=== PATIENT | male | born 1930 | race Caucasian/White ===

== ENCOUNTER 2018-01-05 09:24 | Inpatient (IN) ==
[2018-01-05] MEDS ORDERED: Ondansetron 4 MG/2 ML VIAL IVP ONE (09:26)
[2018-01-05] MEDS ORDERED: 0.9 % Sodium Chloride 1,000 ML IVC ONE (09:26)
--- NOTE | 2018-01-05 09:39 | Emergency Department Note ---
Disposition Clinical Impression: Acute exacerbation of chronic obstructive airways disease, A-fib, Parkinson disease Disposition: Admitted As Inpatient Condition: Fair Time of Disposition: 11:43 General Adult HPI - General Stated complaint: BIBI Time Seen by Provider: 01/05/18 09:26 Nursing Notes Reviewed: Yes Vital Signs Reviewed: Yes - History of Present Illness HPI Narrative: Patient is an 87-year-old male with history of COPD, Parkinson's and A. fib who presents to the emergency department via EMS with complaints of nausea, vomiting and difficulty breathing which began last night. Per EMS the bedside commode was full of vomit and he was found at home in bed. reports over the past couple of days he has had decreased appetite and weakness with nausea and vomiting about over the last 24 hours. Per , he reportedly is supposed to take his inhaler 4 times per day but often forgets no history of recent falls though uses a walker at home. Not been placed on anticoagulants due to history of GI bleeds. Denies any fever, chills, chest pain, abdominal pain, diarrhea, constipation. - Related Data Previous Rx's Medication Instructions Recorded Ciprofloxacin HCl [Cipro] 500 mg PO DAILY 10 Days tablet 09/17/16 Lidocaine Patch [Lidoderm 5% patch] 1 each TP DAILY #10 adh..patch 04/03/17 Allergies Allergy/AdvReac Type Severity Reaction Status Date / Time No Known Allergies Allergy Verified 04/03/17 11:54 Constitutional: Denies: fever, chills, weakness ENT ED: Denies: throat pain Cardiovascular: Denies: chest pain, palpitations, edema Respiratory: Reports: dyspnea. Denies: cough, wheezes Gastrointestinal: Reports: nausea, vomiting. Denies: abdominal pain, diarrhea, constipation Genitourinary: Reports: frequency. Denies: urgency, dysuria Integumentary: Denies: rash, abrasion Neurological: Denies: headache, weakness Past Medical History - Past Medical History Source: patient, old records reviewed, obtained from family Medical history: Reports: arthritis, atrial fibrillation, cancer, COPD, GERD, GI bleed, other (Parkinson Disease) Psychiatric history: Reports: no psych history - Social History Smoking Status: Never smoker Smokeless Tobacco Status: No Alcohol use: Reports: none Drug use: Reports: none Physical Exam Patient is tachypnic, able to voice some concerns but has trouble phonating due to Parkinsons. - General General appearance: alert - Head Head exam: atraumatic, normocephalic - Eye Eye exam: Present: PERRL, EOMI - ENT ENT exam: mucous membranes dry - Chest Chest inspection: Present: normal inspection, symmetric chest wall rise. Absent : tenderness - Respiratory Respiratory exam: Present: normal lung sounds bilaterally, respiratory distress , other (on 4L NC) - Cardiovascular Cardiovascular exam: Present: regular rate, irregular rhythm - Abdominal Exam Abdominal exam: Present: soft, Non-Tender. Absent: distention, guarding - Extremities Exam Extremities exam: Present: pedal edema (1+ to ankles bilaterally) - Back Exam Back exam: Present: normal inspection - Neurological Exam Neurological exam: Present: alert, oriented X3 - Psychiatric Psychiatric exam: Present: normal affect, normal mood - Skin Skin exam: Present: warm, dry Course Course Narrative: Initially presented via EMS with dyspnea for the patient he has no significant medical nautical history other than irregular heartbeat in the past. He denies any history of COPD or other respiratory problems though per records he does have a history of COPD, A. fib, cancer, GERD. We will await the arrival of his family for further information on the patient's medical history. - Reevaluation(s) Reevaluation #1: Discussed with the patient's he has had significant difficulty swallowing and often chokes on his food. Denies any history of CHF or previous SC. family. Patient apparently has history of Parkinson's, COPD, A. fib and difficulty swallowing. His who lives with him states that he intermittently uses his inhaler but is stubborn and often forgets. Denies any recent falls though uses a walker at home. Denies any history of CHF or previous SC. Time: 09:50 Reevaluation #2: Pulse Ox continues to range from 80-86% on 2L, will give 2 duonebs and reassess. Time: 10:31 Reevaluation #3: Case discussed with hospitalist, Dr. Maria who accepted admission. Recommended prednisone 40mg, which was ordered. Time: 11:43 Vital Signs Temperature 98.3 F 01/05/18 09:29 Pulse Rate 89 01/05/18 09:29 Respiratory Rate 18 01/05/18 09:29 Blood Pressure 153/99 01/05/18 09:29 O2 Sat by Pulse Oximetry 96 01/05/18 09:29 Temperature 98.3 F 01/05/18 09:29 Pulse Rate 81 01/05/18 11:26 Respiratory Rate 18 01/05/18 11:26 Blood Pressure 134/72 01/05/18 11:26 O2 Sat by Pulse Oximetry 96 01/05/18 11:26 Oxygen Delivery Oxygen Delivery Nasal Cannula Medical Decision Making - [facility] Narrative Medical decision making narrative: Vital Signs Temperature 98.3 F 01/05/18 09:29 Pulse Rate 89 01/05/18 09:29 Respiratory Rate 18 01/05/18 09:29 Blood Pressure 153/99 01/05/18 09:29 O2 Sat by Pulse Oximetry 96 01/05/18 09:29 Temperature 98.3 F 01/05/18 09:29 Pulse Rate 89 01/05/18 09:29 Respiratory Rate 18 01/05/18 09:29 Blood Pressure 153/99 01/05/18 09:29 O2 Sat by Pulse Oximetry 96 01/05/18 09:29 Oxygen Delivery Oxygen Delivery Nasal Cannula Patient with COPD and Parkinsons, pulse ox 90 on 4 L per EMS with multiple rounds of emesis. History of Parkinsons and this is likely COPD exacerbation vs CHF vs aspiration event. Chest x-ray was unremarkable. CBC, CMP, troponin, and UA were unremarkable. BNP 92. Patient continues on 3 L of oxygen with fluctuating pulse ox from 80-99%. He has gotten two duonebs with slight improvement in aeration but continued slight dyspnea. Patient told multiple times by previous providers that he may need home oxygen but was not ready for that step. Options discussed with family and they agree with the plan for admission for further workup. Dr. Maria accepted the patient under hospitalist service. - Medical Records Medical records reviewed: Yes I reviewed the patient's medical records. - Lab Data Lab results reviewed: Yes I reviewed the patient's lab results. Result diagrams: 01/05/18 10:09 01/05/18 10:09 Lab Results 01/05/18 01/05/18 01/05/18 Range/Units 09:43 10:09 10:09 WBC 5.3 (4.3-11.1) K/mcL RBC 4.05 L (4.19-5.50) M/mcL Hgb 12.7 L (12.9-16.9) g/dL Hct 38.1 (37.5-50.1) % MCV 94.1 (83.0-100.0) fL MCH 31.4 (28.0-33.3) pg MCHC 33.3 (31.6-35.5) g/dL RDW 13.7 (11.5-14.5) % Plt Count 176 (140-400) K/mcL MPV 10.1 (9.4-12.4) fL Immature Gran % 0.2 (0-4) % Seg Neutrophils % 66.2 % Lymphocytes % 24.2 % Monocytes % 5.8 % Eosinophils % 3.0 % Basophils % 0.6 % Neutrophils # 3.5 (1.6-8.9) K/mcL Lymphocytes # 1.3 (0.6-4.6) K/mcL Monocytes # 0.3 (0.0-1.3) K/mcL Eosinophils # 0.2 (0.0-0.6) K/mcL Basophils # 0.0 (0.0-0.2) K/mcL Sodium 140 (136-145) mEq/L Potassium 4.2 (3.5-5.1) mEq/L Chloride 107 (98-107) mEq/L Carbon Dioxide 29 (23-29) mEq/L BUN 12 (8-23) mg/dL Creatinine 0.76 (0.70-1.30) mg/dL Est GFR ( Amer) > 60 (> 60) Est GFR (Non-Af Amer) > 60 (> 60) BUN/Creatinine Ratio 16 (6-26) Glucose 108 H (70-105) mg/dL Calculated Osmolality 290 (280-300) Calcium 8.6 (8.6-10.3) mg/dL Troponin I < 0.03 (< 0.04) ng/mL B-Natriuretic Peptide (Less than 100) pg/mL Urine Color Yellow (Yellow) Urine Clarity Cloudy A (Clear) Urine pH 8.0 (5.0-8.0) pH Units Ur Specific [place] 1.011 (1.010-1.025) Urine Protein Negative (Neg-Trace) mg/dL Urine Glucose (UA) Normal (Normal) mg/dL Urine Ketones Negative (Negative) mg/dL Urine Blood Negative (Negative) Urine Nitrite Negative (Negative) Urine Bilirubin Negative (Negative) Urine Urobilinogen Normal (Normal) mg/dL Ur Leukocyte Esterase Negative (Negative) Urine Microscopic RBC 3-5 H (0-3) per hpf Urine Microscopic WBC 0-3 (0-3) per hpf Ur Squamous Epith Cells Many H (None-Few) per lpf Ur Renal Epithelial Cell Many H (None-Few) per hpf Amorphous Sediment Many H (Few) Hyaline Casts None Seen (None-Few) per lpf Ur Culture Indicated? NO (NO) 01/05/18 Range/Units 10:09 WBC (4.3-11.1) K/mcL RBC (4.19-5.50) M/mcL Hgb (12.9-16.9) g/dL Hct (37.5-50.1) % MCV (83.0-100.0) fL MCH (28.0-33.3) pg MCHC (31.6-35.5) g/dL RDW (11.5-14.5) % Plt Count (140-400) K/mcL MPV (9.4-12.4) fL Immature Gran % (0-4) % Seg Neutrophils % % Lymphocytes % % Monocytes % % Eosinophils % % Basophils % % Neutrophils # (1.6-8.9) K/mcL Lymphocytes # (0.6-4.6) K/mcL Monocytes # (0.0-1.3) K/mcL Eosinophils # (0.0-0.6) K/mcL Basophils # (0.0-0.2) K/mcL Sodium (136-145) mEq/L Potassium (3.5-5.1) mEq/L Chloride (98-107) mEq/L Carbon Dioxide (23-29) mEq/L BUN (8-23) mg/dL Creatinine (0.70-1.30) mg/dL Est GFR ( Amer) (> 60) Est GFR (Non-Af Amer) (> 60) BUN/Creatinine Ratio (6-26) Glucose (70-105) mg/dL Calculated Osmolality (280-300) Calcium (8.6-10.3) mg/dL Troponin I (< 0.04) ng/mL B-Natriuretic Peptide 92 (Less than 100) pg/mL Urine Color (Yellow) Urine Clarity (Clear) Urine pH (5.0-8.0) pH Units Ur Specific [place] (1.010-1.025) Urine Protein (Neg-Trace) mg/dL Urine Glucose (UA) (Normal) mg/dL Urine Ketones (Negative) mg/dL Urine Blood (Negative) Urine Nitrite (Negative) Urine Bilirubin (Negative) Urine Urobilinogen (Normal) mg/dL Ur Leukocyte Esterase (Negative) Urine Microscopic RBC (0-3) per hpf Urine Microscopic WBC (0-3) per hpf Ur Squamous Epith Cells (None-Few) per lpf Ur Renal Epithelial Cell (None-Few) per hpf Amorphous Sediment (Few) Hyaline Casts (None-Few) per lpf Ur Culture Indicated? (NO) - Radiology Data Radiology results reviewed: Yes I reviewed the patient's radiology results. Chest X-Ray 01/05/18 09:26 IMPRESSION: No acute cardiopulmonary disease. D/ / 01/05/2018 09:43:36 Hector Mansfield MD / olivia Interpreting Provider: Hector Mansfield MD - EKG Data EKG #1 EKG attestation: Yes I reviewed and interpreted this EKG. EKG results narrative: A. fib rate of 89, normal axis, ERS 82, QT 339, QTC 385. No evidence of acute ST elevation. Compared with 04/03/2017significant changes.
--- NOTE | 2018-01-05 09:40 | Emergency Department Note ---
Disposition Clinical Impression: Acute exacerbation of chronic obstructive airways disease, A-fib, Parkinson disease Disposition: Admitted As Inpatient Condition: Fair General Adult HPI - General Stated complaint: BIBI Time Seen by Provider: 01/05/18 09:26 Nursing Notes Reviewed: Yes Vital Signs Reviewed: Yes - Related Data Previous Rx's Medication Instructions Recorded Ciprofloxacin HCl [Cipro] 500 mg PO DAILY 10 Days tablet 09/17/16 Lidocaine Patch [Lidoderm 5% patch] 1 each TP DAILY #10 adh..patch 04/03/17 Allergies Allergy/AdvReac Type Severity Reaction Status Date / Time No Known Allergies Allergy Verified 04/03/17 11:54 Past Medical History - Past Medical History Medical history: Reports: arthritis, cancer, COPD, GERD, other Psychiatric history: Reports: no psych history - Social History Smoking Status: Never smoker Smokeless Tobacco Status: No Alcohol use: Reports: none Drug use: Reports: none Course Vital Signs Temperature 98.3 F 01/05/18 09:29 Pulse Rate 89 01/05/18 09:29 Respiratory Rate 18 01/05/18 09:29 Blood Pressure 153/99 01/05/18 09:29 O2 Sat by Pulse Oximetry 96 01/05/18 09:29 Temperature 97.5 F L 01/05/18 12:48 Pulse Rate 75 01/05/18 12:48 Respiratory Rate 17 01/05/18 12:48 Blood Pressure 124/75 01/05/18 12:48 O2 Sat by Pulse Oximetry 95 01/05/18 12:48 Oxygen Delivery Oxygen Delivery Nasal Cannula Medical Decision Making - [facility] Narrative Medical decision making narrative: Chest X-Ray 01/05/18 09:26 IMPRESSION: No acute cardiopulmonary disease. D/ / 01/05/2018 09:43:36 Hector Mansfield MD / olivia Interpreting Provider: Hector Mansfield MD Vital Signs Temperature 98.3 F 01/05/18 09:29 Pulse Rate 89 01/05/18 09:29 Respiratory Rate 18 01/05/18 09:29 Blood Pressure 153/99 01/05/18 09:29 O2 Sat by Pulse Oximetry 96 01/05/18 09:29 Temperature 98.3 F 01/05/18 09:29 Pulse Rate 89 01/05/18 09:29 Respiratory Rate 18 01/05/18 09:29 Blood Pressure 153/99 01/05/18 09:29 O2 Sat by Pulse Oximetry 96 01/05/18 09:29 Oxygen Delivery Oxygen Delivery Nasal Cannula 1150: Patient's labs are back. He is doing somewhat better status and some dyspnea. I think with this history his age and the fact he has not been in the hospital very often with very little medical problems it would be best to bring him into the hospital for evaluation. Patient family in agreement with this plan. We paged hospitalist in agreement to admission. - Lab Data Result diagrams: 01/05/18 10:09 01/05/18 10:09 Lab Results 01/05/18 01/05/18 01/05/18 Range/Units 09:43 10:09 10:09 WBC 5.3 (4.3-11.1) K/mcL RBC 4.05 L (4.19-5.50) M/mcL Hgb 12.7 L (12.9-16.9) g/dL Hct 38.1 (37.5-50.1) % MCV 94.1 (83.0-100.0) fL MCH 31.4 (28.0-33.3) pg MCHC 33.3 (31.6-35.5) g/dL RDW 13.7 (11.5-14.5) % Plt Count 176 (140-400) K/mcL MPV 10.1 (9.4-12.4) fL Immature Gran % 0.2 (0-4) % Seg Neutrophils % 66.2 % Lymphocytes % 24.2 % Monocytes % 5.8 % Eosinophils % 3.0 % Basophils % 0.6 % Neutrophils # 3.5 (1.6-8.9) K/mcL Lymphocytes # 1.3 (0.6-4.6) K/mcL Monocytes # 0.3 (0.0-1.3) K/mcL Eosinophils # 0.2 (0.0-0.6) K/mcL Basophils # 0.0 (0.0-0.2) K/mcL Sodium 140 (136-145) mEq/L Potassium 4.2 (3.5-5.1) mEq/L Chloride 107 (98-107) mEq/L Carbon Dioxide 29 (23-29) mEq/L BUN 12 (8-23) mg/dL Creatinine 0.76 (0.70-1.30) mg/dL Est GFR ( Amer) > 60 (> 60) Est GFR (Non-Af Amer) > 60 (> 60) BUN/Creatinine Ratio 16 (6-26) Glucose 108 H (70-105) mg/dL Calculated Osmolality 290 (280-300) Calcium 8.6 (8.6-10.3) mg/dL Troponin I < 0.03 (< 0.04) ng/mL B-Natriuretic Peptide (Less than 100) pg/mL Urine Color Yellow (Yellow) Urine Clarity Cloudy A (Clear) Urine pH 8.0 (5.0-8.0) pH Units Ur Specific [place] 1.011 (1.010-1.025) Urine Protein Negative (Neg-Trace) mg/dL Urine Glucose (UA) Normal (Normal) mg/dL Urine Ketones Negative (Negative) mg/dL Urine Blood Negative (Negative) Urine Nitrite Negative (Negative) Urine Bilirubin Negative (Negative) Urine Urobilinogen Normal (Normal) mg/dL Ur Leukocyte Esterase Negative (Negative) Urine Microscopic RBC 3-5 H (0-3) per hpf Urine Microscopic WBC 0-3 (0-3) per hpf Ur Squamous Epith Cells Many H (None-Few) per lpf Ur Renal Epithelial Cell Many H (None-Few) per hpf Amorphous Sediment Many H (Few) Hyaline Casts None Seen (None-Few) per lpf Ur Culture Indicated? NO (NO) 01/05/18 Range/Units 10:09 WBC (4.3-11.1) K/mcL RBC (4.19-5.50) M/mcL Hgb (12.9-16.9) g/dL Hct (37.5-50.1) % MCV (83.0-100.0) fL MCH (28.0-33.3) pg MCHC (31.6-35.5) g/dL RDW (11.5-14.5) % Plt Count (140-400) K/mcL MPV (9.4-12.4) fL Immature Gran % (0-4) % Seg Neutrophils % % Lymphocytes % % Monocytes % % Eosinophils % % Basophils % % Neutrophils # (1.6-8.9) K/mcL Lymphocytes # (0.6-4.6) K/mcL Monocytes # (0.0-1.3) K/mcL Eosinophils # (0.0-0.6) K/mcL Basophils # (0.0-0.2) K/mcL Sodium (136-145) mEq/L Potassium (3.5-5.1) mEq/L Chloride (98-107) mEq/L Carbon Dioxide (23-29) mEq/L BUN (8-23) mg/dL Creatinine (0.70-1.30) mg/dL Est GFR ( Amer) (> 60) Est GFR (Non-Af Amer) (> 60) BUN/Creatinine Ratio (6-26) Glucose (70-105) mg/dL Calculated Osmolality (280-300) Calcium (8.6-10.3) mg/dL Troponin I (< 0.04) ng/mL B-Natriuretic Peptide 92 (Less than 100) pg/mL Urine Color (Yellow) Urine Clarity (Clear) Urine pH (5.0-8.0) pH Units Ur Specific [place] (1.010-1.025) Urine Protein (Neg-Trace) mg/dL Urine Glucose (UA) (Normal) mg/dL Urine Ketones (Negative) mg/dL Urine Blood (Negative) Urine Nitrite (Negative) Urine Bilirubin (Negative) Urine Urobilinogen (Normal) mg/dL Ur Leukocyte Esterase (Negative) Urine Microscopic RBC (0-3) per hpf Urine Microscopic WBC (0-3) per hpf Ur Squamous Epith Cells (None-Few) per lpf Ur Renal Epithelial Cell (None-Few) per hpf Amorphous Sediment (Few) Hyaline Casts (None-Few) per lpf Ur Culture Indicated? (NO) Attestation Statement - Attestation Attestation: This documentation is done with the assistance of Dragon dictation. Despite efforts made to ensure accuracy, there may be inaccuracies in radio installer automobile or spelling and typographical errors. I examined this patient and my medical decision-making was reviewed with the Resident Physician. I agree with the documented findings, disposition and treatment plan as described except to the extent set forth below. Patient seen and evaluated on arrival with EMS and Dr. Cano, I agree with her evaluation and management plan, suprascapular the patient's stay. Patient is a poor historian comes from home with nausea and vomiting and dyspnea. He says he does not have a history of any problems but it looks like his past history is had a history of COPD and some type of cancer. We will wait for family to arrive to get more history. He has been nauseous had vomiting at home. We will check lab work seizing and feeling better I imagine he will need admission. Once we discussed with family when they get here we will gain more history and further apart plan and disposition.
[2018-01-05 09:51] LABS: Bilirubin,Urine Negative (Negative); Blood,Urine Negative (Negative); Clarity,Urine Cloudy (Clear); Color,Urine Yellow (Yellow); Glucose,Urine (UA) Normal (Normal); Ketones,Urine Negative (Negative); Leukocyte Esterase,Urine Negative (Negative); Nitrite,Urine Negative (Negative); Protein,Urine Negative (Neg-Trace); Specific Gravity,Urine 1.011 (1.010-1.025); Urobilinogen,Urine Normal (Normal)
[2018-01-05 09:54] LABS: Hyaline Casts,Urine None Seen per lpf (None-Few); Squamous Epithelial Cell,Urine Many per lpf (None-Few); WBC,Urine 0-3 per hpf (0-3)
[2018-01-05 10:14] LABS: Renal Epithelial Cells,Urine Many per hpf (None-Few)
[2018-01-05 10:15] LABS: Amorphous Sediment,Urine Many (Few)
[2018-01-05] MEDS ORDERED: Ipratropium/Albuterol Neb 3 ML IH ONE (10:26)
[2018-01-05 10:31] LABS: Basophils % 0.6 %; Eosinophils # 0.2 K/mcL (0.0-0.6); Hematocrit 38.1 % (37.5-50.1); Hemoglobin 12.7 g/dL (12.9-16.9); Immature Granulocytes % 0.2 % (0-4); Lymphocytes # 1.3 K/mcL (0.6-4.6); Lymphocytes % 24.2 %; Mean Corpuscular HGB Conc 33.3 g/dL (31.6-35.5); Mean Corpuscular Hemoglobin 31.4 pg (28.0-33.3); Mean Corpuscular Volume 94.1 fL (83.0-100.0); Mean Platelet Volume 10.1 fL (9.4-12.4); Monocytes # 0.3 K/mcL (0.0-1.3); Monocytes % 5.8 %; Neutrophils # 3.5 K/mcL (1.6-8.9); Platelet Count 176 K/mcL (140-400); Red Blood Count 4.05 M/mcL (4.19-5.50); Red Cell Distribution Width 13.7 % (11.5-14.5); Segmented Neutrophils % 66.2 %
[2018-01-05 10:49] LABS: Troponin I < 0.03 ng/mL (< 0.04)
[2018-01-05 10:51] LABS: BUN/Creatinine Ratio 16 (6-26); Blood Urea Nitrogen 12 mg/dL (8-23); Calcium 8.6 mg/dL (8.6-10.3); Carbon Dioxide 29 mEq/L (23-29); Chloride 107 mEq/L (98-107); Glucose 108 mg/dL (70-105); Osmolality,Calculated 290 (280-300); Potassium 4.2 mEq/L (3.5-5.1); Sodium 140 mEq/L (136-145); eGFR For African Americans > 60 (> 60); eGFR For Non-African Americans > 60 (> 60)
[2018-01-05] MEDS ORDERED: predniSONE 20 MG TABLET PO ONE (11:43)
[2018-01-05] MEDS ORDERED: Naloxone 0.4 MG/ML INJ IVP PRN (12:17)
[2018-01-05] MEDS ORDERED: Ondansetron 4 MG/2 ML VIAL IVP PRN (12:24)
--- NOTE | 2018-01-05 12:34 | Internal Med History&Physical ---
Date of Encounter: 01/05/18 Time of Encounter: 12:26 Internal Medicine - H&P: HPI Chief complaint: Dyspnea, nausea and vomiting Admitted From: Home Plans for Post Hospital Care: Home History of present illness: Mr. Murry is a 87 year old male with history of COPD, parkinson's, A-FIb, and CA. The patient has had BIBI off and on, but has gotten worse in the past day due to the patient forgetting to take his breathing treatments. There also mention of the patient needing to be on home oxygen but refusing it over the years. CXR showed no acute abnormality, and the presence of a small hiatal hernia. The paitent denied abdominal pain at this time and assessment was negative with light and deep palpation. He is currently on 4L, nc and was given duonebs in the ED. He expressed his breathing was better. Patient is in A- FIB with a controlled rate of 89. He does not take any anticoagulants due to history of GI bleeds. Denies chest pain. The patient will need to be evaluated for Home o2. Past Med Surg Social Fam HX - Past Medical History Medical history: arthritis, atrial fibrillation, cancer, COPD, GERD, GI bleed, other (Parkinson Disease) Additional medical history: Parkinsons Psychiatric history: no psych history - Past Surgical History Additional surgical history: esophageal sx, eye surgeries - Social History Smoking Status: Never smoker Smokeless Tobacco Status: No Alcohol use: none Drug use: none - Family History Mother History Unknown: Yes Internal Medicine - H&P: Meds Ciprofloxacin HCl [Cipro] 500 mg PO DAILY 10 Days tablet 09/17/16 [Rx] Lidocaine Patch [Lidoderm 5% patch] 1 each TP DAILY #10 adh..patch 04/03/17 [Rx] Calcium Carbonate [Tums] 1,000 mg PO Q4HR PRN 01/05/18 [History] Ibuprofen/Diphenhydramine Cit [Advil Pm Caplet] 1 each PO HS 01/05/18 [History] 3 Allergy/AdvReac Type Severity Reaction Status Date / Time No Known Allergies Allergy Verified 04/03/17 11:54 All Systems PM: A 10-system review of systems was performed and is negative for pertinent findings except as documented above in the HPI. - Constitutional Constitutional: no chills, no fever(s), no night sweats - EENT Eyes: no change in vision, no discharge, no pain, no photophobia Ears: no ear discharge, no ear pain, no tinnitus Nose, mouth and throat: no dysphagia, no nasal discharge, no neck pain, no sore throat - Cardiovascular Cardiovascular ROS IM: no chest pain, no diaphoresis, no lightheadedness, no palpitations, no syncope - Respiratory Respiratory: dyspnea, no cough, no wheezing, no excessive phlegm production - Gastrointestinal Gastrointestinal: abdominal pain (At home ), nausea, vomiting, no diarrhea, no hematemesis, no hematochezia, no melena - Musculoskeletal Musculoskeletal ROS IM: no numbness, no tingling - Integumentary Integumentary IM: no rash, no unusual bruising - Neurological Neurological ROS: no confusion, no convulsions, no focal weakness, no numbness, no tingling, no tremor(s) - Hematologic/Lymphatic Hematologic/Lymphatic: no easy bruising - Constitutional Vitals: Temp Pulse Resp BP Pulse Ox 98.3 F 98 16 122/67 96 01/05/18 09:29 01/05/18 12:03 01/05/18 12:10 01/05/18 12:10 01/05/18 12:03 General appearance: Present: A&O X 3, answers questions appropriately - Head Head exam: Present: atraumatic, normocephalic - Eye Eye exam: Present: PERRL, conjuntiva pink, sclera anicteric Pupils: Present: PERRL - Neck Neck exam general surgery: Present: supple, trachea midline. Absent: lymphadenopathy - Respiratory Respiratory exam: Present: decreased breath sounds. Absent: accessory muscle use, rales, rhonchi, wheezes - Cardiovascular Cardiovascular exam: Present: irregular rhythm (Afib-chronic), +S1, +S2. Absent : diastolic murmur, gallop, rubs, systolic murmur - GI/Abdominal GI/Abdominal exam: Present: hernia (Small hiatal per xray), normal bowel sounds , soft. Absent: distended, tenderness, no peritoneal signs - Extremities Exam Extremities exam: Present: pedal edema, warm, radial pulses palpable and symmetrical. Absent: calf tenderness, cyanotic - Neurological Exam Neurological exam: Present: CN II-XII intact, oriented X3, no focal deficits. Absent: pronater drift, facial droop, speech deficit - Skin Skin exam: Present: dry, intact Internal Med - H&P Results - Labs CBC & Chem 7: 01/05/18 10:09 01/05/18 10:09 - Assessment and plan (1) Acute exacerbation of chronic obstructive airways disease Current Visit: Yes Status: Acute Assessment and plan: Likely a result of the patient non-compliance/forgetfulness with his breathing treatment and refusing to wear oxygen at home. Bronchodilators Oxygen Solumedrol 40 mg V daily (2) Nausea and vomiting Current Visit: Yes Status: Acute Assessment and plan: Patient has hx of GERD and a small hiatal hernia noted on a CXR today. The patient could have had a gastroenteritis. Zofran 4 mg ivp q4h prn Monitor vital signs Monitor daily labs Qualifiers: Vomiting type: unspecified Vomiting Intractability: non-intractable Qualified Code(s): R11.2 - Nausea with vomiting, unspecified (3) A-fib Current Visit: Yes Status: Acute Assessment and plan: Patient unable to use DVT prophylaxis due to hx of GI Bleeds Foot pumps while inpatient Qualifiers: Atrial fibrillation type: chronic Qualified Code(s): I48.2 - Chronic atrial fibrillation (4) Parkinson disease Current Visit: Yes Status: Acute Assessment and plan: Hx of Parkinson's however there are no home medications for this condition at this time. Condition appears controlled. (5) Hypoxia Current Visit: Yes Status: Acute Assessment and plan: Patient has a history of needing home o2 per the and refused to wear it. He will need to be evaluated for home o2 with possible HHC prior to discharge. - Time Spent With Patient Total time spent is greater than 50% in coordination of care (as documented) at patient's floor/unit and/or counseling patient: less than 15 minutes
[2018-01-05] MEDS: Ipratropium/Albuterol Neb 3 ML IH SCH ×2 (15:21→21:20)
--- NOTE | 2018-01-05 18:17 | Electrocardiograph Report ---
[place] [id number] Test Date: 2018-01-05 Pat Name: Mohamud Murry Department: 103 Room: 2A12 Gender: M Manager Language: : 1930 Requested By: Ryan Thao Order Number: [id number] Reading MD: Jose Arroyo Measurements Intervals [place] Rate: 89 P: NV: 0 QRS: 58 QRSD: 82 T: 64 QT: 339 QTc: 385 Interpretive Statements SINUS RHYTHM WITH FREQUENT PREMATURE ATRIAL CONTRACTIONS Electronically Signed On 01-05-2018 18:16:31 EDT by Jose Arroyo
[2018-01-05] MEDS ORDERED: NON-FORMULARY MEDICATION 1 EACH EACH (Ibuprofen/Diphenhydramine Cit [Advil Pm Caplet] 1 EA PO SCH (21:00)
[2018-01-05] MEDS: Ibuprofen 200 MG TABLET PO SCH (22:44)
[2018-01-06] MEDS: Ipratropium/Albuterol Neb 3 ML IH SCH ×4 (04:47→22:29)
[2018-01-06 06:30] LABS: Basophils % 0.2 %; Eosinophils % 0.3 %; Hematocrit 34.6 % (37.5-50.1); Hemoglobin 11.4 g/dL (12.9-16.9); Immature Granulocytes % 0.3 % (0-4); Lymphocytes # 1.5 K/mcL (0.6-4.6); Lymphocytes % 24.8 %; Mean Corpuscular HGB Conc 32.9 g/dL (31.6-35.5); Mean Corpuscular Hemoglobin 30.9 pg (28.0-33.3); Mean Corpuscular Volume 93.8 fL (83.0-100.0); Monocytes # 0.4 K/mcL (0.0-1.3); Monocytes % 6.4 %; Neutrophils # 4.2 K/mcL (1.6-8.9); Platelet Count 165 K/mcL (140-400); Red Blood Count 3.69 M/mcL (4.19-5.50); Red Cell Distribution Width 13.9 % (11.5-14.5)
[2018-01-06 06:54] LABS: Troponin I < 0.03 ng/mL (< 0.04)
[2018-01-06 06:58] LABS: BUN/Creatinine Ratio 17 (6-26); Blood Urea Nitrogen 13 mg/dL (8-23); Calcium 9.1 mg/dL (8.6-10.3); Carbon Dioxide 26 mEq/L (23-29); Chloride 104 mEq/L (98-107); Glucose 119 mg/dL (70-105); Osmolality,Calculated 285 (280-300); Potassium 3.8 mEq/L (3.5-5.1); Sodium 137 mEq/L (136-145); eGFR For African Americans > 60 (> 60); eGFR For Non-African Americans > 60 (> 60)
[2018-01-06] MEDS: predniSONE 20 MG TABLET PO SCH (08:09)
[2018-01-06] MEDS ORDERED: Artificial Tears SOLN 15 ML BOTTLE BOTH EYES PRN (08:27)
--- NOTE | 2018-01-06 14:59 | Internal Med Progress Note ---
Date of Encounter: 01/06/18 Time of Encounter: 14:58 - Assessment and plan (1) Acute exacerbation of chronic obstructive airways disease Current Visit: Yes Status: Acute Assessment and plan: Continue bronchodilators, oral steroids. Clinically getting better. If he continues to improve, possible discharge tomorrow. Moderate risk for complications (2) A-fib Current Visit: Yes Status: Chronic Assessment and plan: Has been rate controlled. Patient is in sinus tachycardia at this time most likely due to bronchodilators use. Not currently on anticoagulation due to history of GI bleed, underlying Parkinson's disease with high risk for falls. Qualifiers: Atrial fibrillation type: chronic Qualified Code(s): I48.2 - Chronic atrial fibrillation (3) Hypoxia Current Visit: Yes Status: Acute Assessment and plan: Patient is currently saturating at 98% on 3 L. We will wean FiO2 as tolerated (4) Nausea and vomiting Current Visit: Yes Status: Resolved Assessment and plan: Symptoms have now improved since he received Zofran in the ER. Tolerating oral diet well. Qualifiers: Vomiting type: unspecified Vomiting Intractability: non-intractable Qualified Code(s): R11.2 - Nausea with vomiting, unspecified (5) Parkinson disease Current Visit: Yes Status: Chronic Assessment and plan: Reported history of Parkinson's disease. Patient not on any medications at home. Requests medication to help him sleep tonight. Will order low-dose Ativan 1 time dose sublingually as he has trouble swallowing pills. - Time Spent With Patient Total time spent is greater than 50% in coordination of care (as documented) at patient's floor/unit and/or counseling patient: - Subjective Interval history: Patient is feeling much better today. Denies any chest pain or palpitations. Complains of dry eyes. Shortness of breath is improving. Nausea and vomiting has also improved. - Constitutional Vitals: Temp Pulse Resp BP Pulse Ox 98.1 F 71 16 138/71 98 01/06/18 10:49 01/06/18 10:49 01/06/18 10:49 01/06/18 10:49 01/06/18 10:49 General appearance: Present: A&O X 3, answers questions appropriately - Eye Additional comments: Erythema noted in left conjunctiva - Neck Neck exam general surgery: Present: supple, trachea midline. Absent: lymphadenopathy - Respiratory Respiratory exam: Present: CTAB. Absent: accessory muscle use, rales, rhonchi, wheezes - Cardiovascular Cardiovascular exam: Present: RRR, +S1, +S2. Absent: diastolic murmur, gallop, rubs, systolic murmur - GI/Abdominal GI/Abdominal exam: Present: normal bowel sounds, soft, no peritoneal signs. Absent: distended, tenderness - Extremities Exam Extremities exam: Present: warm, radial pulses palpable and symmetrical. Absent : calf tenderness, cyanotic, pedal edema - Neurological Exam Neurological exam: Present: alert, oriented X3, no focal deficits. Absent: facial droop, speech deficit Internal Medicine: Result - Labs CBC & Chem 7: 01/06/18 06:14 01/06/18 06:14 - VTE Documentation of Mechanical Device: Venous foot pump, device Consult Discharge Plan - Plan
[2018-01-06] MEDS ORDERED: *HR* LORazepam 0.5 MG TABLET SL ONE (21:00)
[2018-01-06] MEDS: Ibuprofen 200 MG TABLET PO SCH (21:40)
[2018-01-07] MEDS: Ipratropium/Albuterol Neb 3 ML IH SCH ×2 (05:16→10:02)
[2018-01-07 07:53] VITALS: BP 154/90
--- NOTE | 2018-01-07 10:01 | Discharge Summary ---
- NOTES TO OUTPATIENT PROVIDER Notes to Outpatient Provider: Patient with history of COPD was hospitalized here with acute exacerbation of COPD. He was treated with bronchodilators and steroids. He also had episodes of nausea and vomiting prior to arrival. This was treated with Zofran with complete resolution. He is now tolerating diet well. He is clinically stable to be discharged back home. He will be discharged on a steroid taper. Date of Encounter: 01/07/18 Time of Encounter: 09:00 - Discharge Diagnosis (1) Acute exacerbation of chronic obstructive airways disease Priority: Primary Status: Acute (2) A-fib Priority: Secondary Status: Chronic Qualifiers: Atrial fibrillation type: chronic Qualified Code(s): I48.2 - Chronic atrial fibrillation (3) Hypoxia Priority: Secondary Status: Acute (4) Nausea and vomiting Priority: Secondary Status: Resolved Qualifiers: Vomiting type: unspecified Vomiting Intractability: non-intractable Qualified Code(s): R11.2 - Nausea with vomiting, unspecified (5) Parkinson disease Priority: Secondary Status: Chronic Hospital course: Mr. Murry is a 87 year old male Patient with history of COPD , Parkinson's disease, atrial fibrillation was hospitalized here with acute exacerbation of COPD and hypoxia. He was treated with bronchodilators and steroids and O2 supplementation. He was evaluated by He also had episodes of nausea and vomiting prior to arrival. This was treated with Zofran with complete resolution. He is now tolerating diet well. He is clinically stable to be discharged back home. He will be discharged on a steroid taper. He was evaluated for home oxygen and his sats remained greater than 90% after 6 minute walk test Discharge discussed with: patient, family, nurse - Time Spent with Patient Total time spent providing and/or coordinating discharge services: Greater than 30 minutes (32 min) - Discharge Medications Prescriptions: Ondansetron ODT [Zofran ODT] 4 mg SL Q8HR PRN #20 tab.rapdis PRN Reason: Nausea/ vomiting predniSONE [PredniSONE] 10 mg PO DAILY #12 tablet Home Medications: Calcium Carbonate [Tums] 1,000 mg PO Q4HR PRN 01/05/18 [History] Albuterol Sulfate [Albuterol Inhaler] 2 puff IH Q6H PRN 01/06/18 [History] Brimonidine 0.2% [Alphagan] 1 drop LEFT EYE TID 01/06/18 [History] Carboxymethylcellulose Sodium [Thera Tears] 1 drop BOTH EYES 6XD PRN 01/06/18 [ History] Sodium Chloride [Heavenly-128] 1 drop LEFT EYE 6XD 01/06/18 [History] Ondansetron ODT [Zofran ODT] 4 mg SL Q8HR PRN #20 tab.rapdis 01/07/18 [Rx] predniSONE [PredniSONE] 10 mg PO DAILY #12 tablet 01/07/18 [Rx] Allergies/Adverse Reactions: 3 Allergy/AdvReac Type Severity Reaction Status Date / Time No Known Allergies Allergy Verified 01/06/18 14:34 Date of admission: 01/06/18 10:52 Primary care physician: Isra Ren MD Discharging clinician: Soumya Benavides Anticipated date of discharge: 01/07/18 - Constitutional Vitals: Temp Pulse Resp BP Pulse Ox 98.2 F 70 18 154/90 92 01/07/18 07:51 01/07/18 07:51 01/07/18 07:51 01/07/18 07:51 01/07/18 07:51 General appearance: Present: A&O X 3, answers questions appropriately - Neck Neck exam general surgery: Present: supple, trachea midline. Absent: lymphadenopathy - Respiratory Respiratory exam: Present: CTAB. Absent: accessory muscle use, rales, rhonchi, wheezes - Cardiovascular Cardiovascular exam: Present: RRR, +S1, +S2. Absent: diastolic murmur, gallop, rubs, systolic murmur - GI/Abdominal GI/Abdominal exam: Present: normal bowel sounds, soft, no peritoneal signs. Absent: distended, tenderness - Extremities Exam Extremities exam: Present: warm, radial pulses palpable and symmetrical. Absent : calf tenderness, cyanotic, pedal edema - Patient Status Disposition: Home, Self-Care Condition: Fair Functional capacity at discharge: uses cane/walker Overall status at discharge: patient is progressing back to baseline - Discharge Instructions Instructions: Prednisone (By mouth), Ondansetron (By mouth), Atrial Fibrillation (DC), Chronic Obstructive Pulmonary Disease (DC) Follow Up With: Isra Ren MD [Primary Care Provider] - (in 1-2 weeks) Forms: ED Satisfaction Letter - Diet and Activity Activity: increase activity as tolerated Diet: low fat, low cholesterol, low salt diet - VTE Documentation of Mechanical Device: Venous foot pump, device
[2018-01-07] MEDS: predniSONE 20 MG TABLET PO SCH (10:39)
== END 2018-01-07 12:20 | disposition home or self-care (01) | DRG 192 ==
LOC: EMEROO 09:24 → 2ANU 09:24 → SUATTDRO 11:52 → 2ANU 12:32
PROVIDERS: ADMIT Internal Medicine; ATTEND Internal Medicine